=== PATIENT | female | born 1970 | race Caucasian/White ===

== ENCOUNTER → 2016-05-18 | Outpatient (CLI) | payer OTHER ==
--- NOTE | 2016-05-18 17:34 | MA ---
Screening Digital Mammogram With iCAD Analysis Clinical Indications: Routine screening. Technique: Standard cephalocaudal projections are obtained. Digital breast tomosynthesis was performe d in the MLO projection with reconstruction at 1.0 mm slice thickness and composite MLO views reconst ructed. This examination is processed by the iCAD computer aided detection system. Comparison: September 2014, March 2013, February 2013, September 2011. Breast density: Type C: Heterogeneously dense. Findings: CAD was reviewed. No masses, suspicious calcifications or secondary signs of malignancy are seen. There has been no significant change in the appearance of either breast. Impression: Negative mammography, BI-RADS 1.. Recommendation: Routine mammographic screening in one year as long as physical examination is negativ e in this patient with heterogeneously dense breast parenchyma. [facility] will send a result letter to the patient. Negative mammography should not preclude additional workup of a clinically suspicious finding. The patient's information is entered into a reminder system with a target due date for her next mammo gram.
== END ==
LOC: FIMAGING 15:08
DX: Z12.31 Encounter for screening mammogram for malignant neoplasm of breast (principal)
CPT/HCPCS: G0202

== ENCOUNTER 2016-05-25 23:47 | Emergency (ER) | payer OTHER ==
--- NOTE | 2016-05-25 23:58 | EDPHY ---
H & P Stated Complaint: tongue swelling since 2100 HPI/ROS: HPI CHIEF COMPLAINT: Tongue swelling, facial swelling HISTORY OF PRESENT ILLNESS: This patient is a 45-year-old female, she presents to the emergency room by private vehicle around 930 this evening she developed right-sided facial swelling she tells me this is very common she has a condition that she calls it pressure urticaria. When she has significant pressure to her skin her skin swells up. She tells me that this is a normal thing for her she usually has swelling along her bra line or if she has significant pressure to her skin she gets urticaria. She tells me around 930 tonight the right side of her upper lip was swelling she tells me this is normal she takes Benadryl for this and it goes away. However around midnight she woke up with a sensation that her tongue was swelling. She presented to the emergency room by private vehicle. Upon arrival here in the emergency room she is able swallow she has no stridor she has no respiratory symptoms she does tell me that her tongue feels bigger than normal. On exam she has asymmetrical tongue swelling right greater than left. Uvula is midline. she denies recent illness, fever, shortness of breath , chest pain. She does tell me that she took Benadryl prior to arrival she does not have an epinephrine pen at home. She does tell me that she see an rivet driver in the past and they tell her there is nothing really you can do Past Medical History: Pressure urticaria Past Surgical History: Denies surgical history Social History: denies use of drugs alcohol tobacco products Family History: Noncontributory ROS REVIEW OF SYSTEMS: A comprehensive 10 point review of systems is otherwise negative aside from elements mentioned in the history of present illness. Exam Constitutional triage nursing summary reviewed, vital signs reviewed, awake/ alert. Eyes normal conjunctivae and sclera, EOMI, PERRLA. HENT face: There is swelling to the right upper lip, on oropharynx exam the uvula is midline, soft palate is normal, no stridor, the tongue is asymmetrically swollen right greater than left, normal inspection, atraumatic, moist mucus membranes, no epistaxis, neck supple/ no meningismus, no raccoon eyes. Respiratory clear to auscultation bilaterally, normal breath sounds, no respiratory distress, no wheezing. Cardiovascular rate normal, regular rhythm, no murmur, no edema, distal pulses normal. Gastrointestinal soft, non-tender, no rebound, no guarding, normal bowel sounds, no distension, no pulsatile mass. Genitourinary no CVA tenderness. Musculoskeletal no midline vertebral tenderness, full range of motion, no calf swelling, no tenderness of extremities, no meningismus, good pulses, neurovascularly intact. Skin pink, warm, & dry, no rash, skin atraumatic. Neurologic awake, alert and oriented x 3, AAOx3, moves all 4 extremities equally, motor intact, sensory intact, CN II-XII intact, normal cerebellar, normal vision, normal speech. Psychiatric normal mood/affect. Heme/Lymph/Immune no lymphadenopathy. Differential Diagnosis: includes but is not limited to in a particular order, anaphylaxis, severe allergic reaction, angioedema Medical Decision Making: This patient had an IV established patient received 0.3 mg IM epinephrine should be placed on full monitor and storage bin tender, she received IV Solu-Medrol 125, 20 mg IV Pepcid, 50 mg IV Benadryl. She received IV fluids will closely monitor her airway. Re-evaluation: 0148: this patient is stable at this time. I have re-evaluated her multiple times and watched her airway she has no progression of angioedema no progression of tongue swelling. She is able swallow appropriately. No wheezing , no respiratory symptoms. She is resting comfortably. She has been here for 2 hours. Will continue to observe her closely. 0359: Re-examination at this time this patient is resting comfortably she has no complaints. She has been monitored for over 4 hours here. She has had no progression of symptoms specifically she has had no progression of tongue swelling, facial swelling, trouble swallowing, wheezing shortness of breath nausea vomiting or rash. She is requesting be discharged home. She did receive epinephrine here in the emergency room also Solu-Medrol and Pepcid and Benadryl. I will place her on prednisone for 5 days, Pepcid for 5 days, Benadryl for 5 days. She has been given extremely strict return precautions she understands if she develops any worsening swelling of her tongue trouble swallowing, respiratory symptoms nausea or vomiting or she feels worse she needs to immediately return emergency room. I will prescribe her an epinephrine pen. She understands to administer epinephrine if she has worsening symptoms or call 911. Patient also understands to follow up with her rivet driver. Source: Patient - Personal History LMP (Females 10-55): 1-7 Days Ago Current Tetanus/Diphtheria Vaccine: Yes Current Tetanus Diphtheria and Acellular Pertussis (TDAP): Yes Tetanus Vaccine Date: 2011 - Medical/Surgical History Hx Asthma: No Hx Chronic Respiratory Disease: No Hx Diabetes: No Hx Cardiac Disease: No Hx Renal Disease: No Hx Cirrhosis: No Hx Alcoholism: No Hx HIV/AIDS: No Hx Splenectomy or Spleen Trauma: No Other PMH: denies - Social History Smoking Status: Never smoked Constitutional: Initial Vital Signs Temperature (C) 36.8 C 05/25/16 23:49 Heart Rate 82 05/25/16 23:49 Respiratory Rate 16 05/25/16 23:49 Blood Pressure 144/79 H 05/25/16 23:49 O2 Sat (%) 99 05/25/16 23:49 O2 Delivery Mode Room Air Allergies/Adverse Reactions: Penicillins Allergy (Unknown, Verified 05/25/16 23:52) AVOIDS FAMILY HX Sulfa (Sulfonamide Antibiotics) [Sulfa(Sulfonamide Antibiotics)] Allergy ( Unknown, Verified 05/25/16 23:52) RASH/FEVER Home Medications: Medication Instructions Recorded Cyclafem 09/16/13 EPINEPHrine [Epipen 0.3 MG (RX)] 0.3 mg IM ONCE #2 syr 09/16/13 predniSONE 60 mg PO DAILY #3 tab 09/16/13 predniSONE 60 mg PO DAILY #5 tab 09/16/13 EPINEPHRINE [EPIPEN] 0.3 mg IM ONCE #2 syr 05/26/16 Famotidine [Pepcid 20 MG (*)] 20 mg PO BID #10 tab 05/26/16 diphenhydrAMINE [Benadryl 25 MG 25 mg PO BID #10 tab 05/26/16 (*)] predniSONE 60 mg PO DAILY #15 tab 05/26/16 Medical Decision Making - Data Points Medications Given: Discontinued Medications Diphenhydramine HCl (Benadryl Injection) 50 mg IVP EDNOW ONE Stop: 05/26/16 00:04 Last Admin: 05/26/16 00:10 Dose: 50 mg Epinephrine HCl (Epinephrine) 0.3 mg IM EDNOW ONE Stop: 05/26/16 00:04 Last Admin: 05/26/16 00:05 Dose: 0.3 mg Famotidine (Pepcid) 20 mg IVP EDNOW ONE Stop: 05/26/16 00:04 Last Admin: 05/26/16 00:12 Dose: 20 mg Sodium Chloride (Ns) 1,000 mls @ 0 mls/hr IV ONCE ONE PRN Reason: Wide Open Stop: 05/26/16 00:04 Last Admin: 05/26/16 00:10 Dose: 1,000 mls Methylprednisolone Sodium Succinate (Solu-Medrol) 125 mg IVP EDNOW ONE Stop: 05/26/16 00:03 Last Admin: 05/26/16 00:10 Dose: 125 mg Departure - Departure Disposition: Home, Routine, Self-Care Clinical Impression: Allergic reaction Qualifiers: Encounter type: initial encounter Qualifier Code: (T78.40XA) Allergy, unspecified, initial encounter Angioedema Qualifiers: Encounter type: initial encounter Qualifier Code: (T78.3XXA) Angioneurotic edema, initial encounter Condition: Good Instructions: Anaphylaxis (ED), Allergies (ED), Urticaria (ED), Angioedema (ED) Additional Instructions: 1.Return immediately to the emergency room if you have any worsening symptoms includes tongue swelling, trouble swallowing or problems breathing. 2. call 911 if this happens administered herself an epinephrine pen. 3.Please take prednisone for the next 5 days, Benadryl for the next 5 days and Pepcid for the next 5 days. Referrals: Helen Vicente MD [Primary Care Provider] - As per Instructions Prescriptions: diphenhydrAMINE [Benadryl 25 MG (*)] 25 mg PO BID #10 tab EPINEPHRINE [EPIPEN] 0.3 mg IM ONCE #2 syr Famotidine [Pepcid 20 MG (*)] 20 mg PO BID #10 tab predniSONE 60 mg PO DAILY #15 tab
[2016-05-26] MEDS ORDERED: methylPREDNISolone SOD SUCC 125 MG/2 ML VIAL IVP ONE (00:02)
[2016-05-26] MEDS ORDERED: NS 1,000 ML IV ONE (00:03)
[2016-05-26] MEDS ORDERED: FAMOTIDINE 20 MG/2 ML SDV IVP ONE (00:03)
[2016-05-26] MEDS ORDERED: FAMOTIDINE 20 MG/NACL/50 ML BAG IV ONE (00:04)
[2016-05-26 04:29] VITALS: BP 134/77; PULSE 76; RESP 16; TEMP 97.5; O2SAT 94
== END 2016-05-26 04:28 | disposition home or self-care (01) ==
DX: T78.3XXA Angioneurotic edema, initial encounter (principal)
CPT/HCPCS: 96374; J0171; J1200

== ENCOUNTER → 2018-06-16 | Outpatient (CLI) | payer OTHER | LOC: FIMAGING 11:59 | PROVIDERS: ATTEND Obstetrics & Gynecology Gynecology | DX: Z12.31 Encounter for screening mammogram for malignant neoplasm of breast (principal) ==